=== PATIENT | female | born 1965 | race Caucasian/White ===

== ENCOUNTER 2018-01-25 05:56 | Emergency (ER) | payer OTHER ==
[~2018-01-25] VITALS: Ht 165.1 cm; Wt 79.4 kg
[2018-01-25] MEDS ORDERED: SIMVASTATIN20 M2 PO (06:08)
--- NOTE | 2018-01-25 06:23 | ED GI/GU/ABDOMINAL COMPLAINT ---
History of Present Illness General Chief Complaint: Abdominal Pain/Flank Pain Stated Complaint: LEF SIDE FLANK PAIN Source: patient Exam Limitations: no limitations Vital Signs & Intake/Output Vital Signs & Intake/Output Vital Signs Date Time Temp Pulse Resp B/P B/P Pulse O2 O2 Flow FiO2 Mean Ox Delivery Rate 01/25 0610 Room Air 01/25 603 98.6 106 18 136/74 96 Room Air Triage Note: PT TO TRIAGE C/O L UPPER ABD PAIN/ BELOW RIB PAIN X FEW DAYS WORSE WITH LYING DOWN. DENIES SOB. REPORTS "I THOUGHT IT WAS A MUSCLE BUT THE PAIN WAS NOT GOING AWAY AND LAST NIGHT WAS EVEN WORSE LYING DOWN." DENIES CP, SOB. Triage Nurses Notes Reviewed? yes ? n Is pt currently ? No Onset: Gradual Duration: day(s): Timing: recent history Quality/Severity: sharpness Radiation: left chest wall tenderness/pain Activities at Onset: per , "she has been lifting a lot of heavy boxes" Prior Abdominal Problems: none Modifying Factors: Worsens With: palpation. Associated Symptoms: left sided rib cage tenderness HPI: 52 yo woman in prior good health presents with 3-4 days of left sided rib cage pain. She notes, "It would feel better when I would lie on my right side... worse on my left side." She notes that she took some muscle relaxants a few times without significant effect. She has no nausea, vomiting, diarrhea, abdominal pain, syncopal symptoms or fever. She is otherwise well. (Debra CLAIRE,Dane La) Allergies Coded Allergies: NO KNOWN ALLERGIES (01/25/18) Reconcile Medications Baclofen 10 MG TABLET 1 TAB PO TIDPRN PRN muscle spasm/strain Ibuprofen 800 MG TABLET 1 TAB PO TID PRN pain Simvastatin (Simvastatin*) 20 MG TABLET 1 TAB PO QPM CHOLESTEROL (Reported) (Martin CLAIRE,Josef) Past History Travel History Traveled to [place] past 21 day No Medical History Any Pertinent Medical History? 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 No (Dane Richardson MD) Review of Systems Review of Systems Constitutional: Reports: no symptoms. EENTM: Reports: no symptoms. Respiratory: Reports: no symptoms. Cardiovascular: Reports: no symptoms. GI: Reports: no symptoms. Genitourinary: Reports: no symptoms. Musculoskeletal: Reports: no symptoms. Skin: Reports: no symptoms. Neurological/Psychological: Reports: no symptoms. Hematologic/Endocrine: Reports: no symptoms. Immunologic/Allergic: Reports: no symptoms. All Other Systems: Reviewed and Negative (Debra CLAIRE,Dane La) Physical Exam Physical Exam General Appearance: well developed/nourished, mild distress Head: atraumatic, normal appearance Eyes: Bilateral: normal appearance. Ears, Nose, Throat, Mouth: hearing grossly normal, moist mucous membrane Neck: normal inspection, full range of motion Respiratory: normal breath sounds, chest non-tender, no respiratory distress, quiet respiration, lungs clear Cardiovascular: regular rate/rhythm Gastrointestinal: normal bowel sounds, soft, left sided rib cage tenderness to palpation. parasternal tenderness to palpation. Back: normal inspection Extremities: normal range of motion Neurologic/Psych: no motor/sensory deficits, awake, alert, oriented x 3 Skin: intact, normal color, warm/dry Core Measures ACS in differential dx? No Sepsis Present: No Sepsis Focused Exam Completed? No (Debra CLAIRE,Dane La) Progress Differential Diagnosis: rib cage pain vs other. Plan of Care: Orders Procedure Date/time Status TROPONIN LEVEL 01/25 631 Complete LIPASE 01/25 631 Complete HEPATIC FUNCTION PANEL 01/25 631 Complete D-DIMER 01/25 631 Complete CBC WITHOUT DIFFERENTIAL 01/25 631 Complete BASIC METABOLIC PANEL 01/25 631 Complete AMYLASE 01/25 631 Complete EKG 01/25 631 Active Laboratory Tests 01/25/18 0640: Anion Gap 13, Estimated GFR > 60, BUN/Creatinine Ratio 21.4, Glucose 114 H, Calcium 9.6, Total Bilirubin 0.7, Direct Bilirubin 0.2, AST 17, ALT 22, Alkaline Phosphatase 77, Troponin I < 0.01, Total Protein 7.8, Albumin 4.7, Amylase 67, Lipase 90, D-Dimer High Sensitivty < 200, CBC w Diff NO MAN DIFF REQ, RBC 4.49, MCV 89.2, MCH 29.6, MCHC 33.2, RDW 12.3, MPV 7.7, Gran % 79.5 H, Lymphocytes % 12.0 L, Monocytes % 7.5, Eosinophils % 0.7, Basophils % 0.3, Absolute Granulocytes 8.5 H, Absolute Lymphocytes 1.3, Absolute Monocytes 0.8 H, Absolute Eosinophils 0.1, Absolute Basophils 0 Diagnostic Imaging: Viewed by Me: Radiology Read. Discussed w/RAD: Radiology Read. Initial ED EKG: normal axis, normal intervals, normal p-waves, normal QRS complex, normal sinus rhythm Hand-Off Endorsed To: Josef Salazar MD Endorsed Time: 0700 (Debra CLAIRE,Dane La) CXR Impression: No pneumothorax or vascular congestion. No definite airspace consolidation. Comments: Reports assisted daughter moving last weekend. (Josef Salazar MD) Departure Departure Condition: Stable Clinical Impression Primary Impression: Chest wall tenderness Secondary Impressions: Chest pain Referrals: Pam CLAIRE,Trell Orozco (PCP/Family) Departure Forms: Customer Survey General Discharge Information (Debra CLAIRE,Dane La) Departure Time of Disposition: 802 Disposition: HOME OR SELF CARE Prescriptions: Current Visit Scripts Ibuprofen 1 TAB PO TID PRN pain #30 TAB Baclofen 1 TAB PO TIDPRN PRN muscle spasm/strain #30 TAB (Josef Salazar MD)
[2018-01-25] MEDS ORDERED: IBUPROFEN800 M1 PO (06:39)
[2018-01-25 07:09] LABS: ABSOLUTE BASOPHIL COUNT 0 /CUMM (0.0-0.2); ABSOLUTE EOSINOPHIL COUNT 0.1 /CUMM (0.0-0.7); ABSOLUTE GRANULOCYTE CT 8.5 /CUMM (1.4-6.5); ABSOLUTE LYMPH COUNT 1.3 /CUMM (1.2-3.4); ABSOLUTE MONOCYTE COUNT 0.8 /CUMM (0.10-0.60); BASOPHIL % 0.3 % (0.0-2.0); EOSINOPHIL % 0.7 % (0-5); GRANULOCYTE % 79.5 % (42.2-75.2); HEMATOCRIT 40.1 % (37-47); MEAN CORPUSCULAR HGB 29.6 PG (27.0-31.0); MEAN CORPUSCULAR HGB CONC 33.2 G/DL (33.0-37.0); MEAN CORPUSCULAR VOLUME 89.2 FL (81.0-99.0); MEAN PLATELET VOLUME 7.7 FL (7.4-10.4); PLATELET COUNT 359 /CUMM (130-400); RBC DISTRIBUTION WIDTH 12.3 % (11.5-14.5); RED BLOOD CELL CT 4.49 /CUMM (4.20-5.40); WHITE BLOOD CELL COUNT 10.7 /CUMM (4.8-10.8)
--- NOTE | 2018-01-25 07:10 | RADIOLOGY REPORT ---
EXAMINATION: XR PORTABLE CHEST CLINICAL INFORMATION: Chest pain COMPARISON: None TECHNIQUE: Portable upright AP view of the chest was obtained. FINDINGS: The radiograph is obtained with slight caudad angulation of the x-ray. There is no pneumothorax. The vascularity is normal. There is no vascular congestion. Nonanatomic mild increased attenuation is seen lateral left chest and left base which is most likely related to technical factors and overlying soft tissues. There is no dense airspace consolidation or air bronchograms. Right lung is clear. No visible effusion. The heart is within normal size. The visualized hilar and mediastinal contours and bony structures are unremarkable. IMPRESSION: No pneumothorax or vascular congestion. No definite airspace consolidation.
[2018-01-25] MEDS ORDERED: BACLOFEN10 M1 PO (08:05)
[2018-01-25 08:24] VITALS: BP 122/78
== END 2018-01-25 08:25 ==
LOC: ERH 05:56
PROVIDERS: Pediatrics
DX: R07.89 Other chest pain (principal)
CPT/HCPCS: 71045; 93005; 93010; 96372; J1885